=== PATIENT | male | born 1980 | race Asian ===

== ENCOUNTER 2024-09-10 19:53 | Emergency (ER) | payer OTHER ==
[~2024-09-10] VITALS: Ht 180.3 cm; Wt 95.3 kg
[2024-09-10 21:01] LABS: BASOPHILS % (AUTO) 0.6 % (0.0-2.0); EOSINOPHILS # (AUTO) 0.2 K/uL (0.0-0.7); EOSINOPHILS % (AUTO) 2.5 % (0.0-6.0); HEMATOCRIT 43 % (39-51); HEMOGLOBIN 14.5 g/dL (13.5-17.5); LYMPHOCYTES # (AUTO) 2.4 K/uL (0.8-4.8); LYMPHOCYTES % (AUTO) 29.3 % (20.0-44.0); MEAN CORPUSCULAR HEMOGLOBIN 29 PG (26.0-33.0); MEAN CORPUSCULAR HGB CONC 34 g/dl (31.0-36.0); MEAN CORPUSCULAR VOLUME 86 fL (80-96); MONOCYTES # (AUTO) 0.7 K/uL (0.1-1.30); MONOCYTES % (AUTO) 8.5 % (2.0-12.0); NEUTROPHILS # (AUTO) 4.9 K/uL (1.8-8.9); NEUTROPHILS % (AUTO) 59.1 % (43.0-81.0); PLATELET COUNT (AUTO) 251 K/uL (150-450); RED CELL DISTRIBUTION WIDTH 12.8 % (11.5-15.0); WHITE BLOOD COUNT (AUTO) 8.2 K/uL (4.3-11.0)
[2024-09-10 21:09] LABS: CALCIUM, SERUM 9.2 mg/dL (8.5-10.1); CARBON DIOXIDE 29 mmol/L (21-32); CHLORIDE 105 mmol/L (98-107); CREATININE 1.1 mg/dL (0.6-1.3); GLUCOSE 172 mg/dL (74-106); POTASSIUM 3.9 mmol/L (3.5-5.1); SODIUM SERUM 141 mmol/L (136-145); UREA NITROGEN, BLOOD 18 mg/dL (7-18)
[2024-09-10] MEDS ORDERED: NAPROXEN 250 MG TABLET ONE (21:12)
[2024-09-10] MEDS: NAPROXEN 250 MG TABLET PO ONE (21:17)
[2024-09-10 21:21] VITALS: BP 134/98; TEMP 97.5; O2SAT 97
[2024-09-10] MEDS ORDERED: ASPIRIN EC 325 MG TABLET.DR PO ONE (21:59)
[2024-09-10] MEDS: ASPIRIN EC 325 MG TABLET.DR PO ONE (21:59)
== END 2024-09-10 23:35 | disposition home or self-care (01) ==
LOC: ER 19:58
DX: R07.89 Other chest pain (principal); I10 Essential (primary) hypertension; E11.9 Type 2 diabetes mellitus without complications; Z20.822 Contact with and (suspected) exposure to COVID-19
CPT/HCPCS: 36415; 71045-TC; 80048-TC; 84484-TC; 85025-TC